=== PATIENT | female | born 1985 | race Caucasian/White ===

== ENCOUNTER 2016-11-19 01:38 | Inpatient (IN) | payer BC ==
[2016-11-19] MEDS ORDERED: Sodium Chloride 0.9% 10 ML Syringe FLUSH PRN ×2 (03:43→06:58)
[2016-11-19] MEDS ORDERED: Sodium Chloride 0.9% 2.5 ML Syringe FLUSH PRN ×2 (03:43→06:58)
[2016-11-19] MEDS: Lactated Ringers 1,000 ML IV ONE ×2 (04:05→06:58)
[2016-11-19] MEDS ORDERED: Dextrose 5%-Lactated Ringers 1,000 ML IV SCH (05:30)
[2016-11-19] MEDS ORDERED: Propofol 200 MG/20 ML SDV ONE (06:56)
[2016-11-19] MEDS ORDERED: Lidocaine 2% 5 ML SDV ONE (06:56)
[2016-11-19] MEDS ORDERED: fentaNYL 100 MCG/2 ML SDV ONE (06:56)
[2016-11-19] MEDS ORDERED: Midazolam 1 MG/ML 2 ML SDV ONE (06:56)
[2016-11-19] MEDS ORDERED: fentaNYL 250 MCG/5 ML SDV ONE (06:56)
[2016-11-19] MEDS ORDERED: ceFAZolin 1 GM in Premix Bag 1 BAG IV ONE (06:58)
[2016-11-19] MEDS ORDERED: Citric Acid/Sodium Citrate Solution 30 ML Cup PO SCH (07:00)
[2016-11-19] MEDS ORDERED: Lactated Ringers 1,000 ML IV SCH ×2 (07:00→08:00)
[2016-11-19] MEDS ORDERED: HYDROmorphone 2 MG/ML Syringe ONE (07:26)
[2016-11-19] MEDS ORDERED: Octyl 2-Cyanoacrylate 1 Tube ONE (07:34)
[2016-11-19] MEDS ORDERED: Ibuprofen 800 MG Tab PO PRN (07:51)
[2016-11-19] MEDS ORDERED: Lanolin 100% Cream 7 GM Tube TOP PRN (07:51)
[2016-11-19] MEDS ORDERED: Simethicone 80 MG Tab.Chew PO PRN (07:51)
[2016-11-19] MEDS ORDERED: diphenhydrAMINE 50 MG/ML SDV IVPUSH PRN (07:51)
[2016-11-19] MEDS ORDERED: Bisacodyl 10 MG Supp RECTAL PRN (07:51)
[2016-11-19] MEDS ORDERED: Ondansetron 4 MG/2 ML SDV IV PRN (07:51)
[2016-11-19] MEDS ORDERED: Acetaminophen/oxyCODONE 325-5 MG Tab PO PRN (07:51)
[2016-11-19] MEDS ORDERED: Morphine PF 30 MG/30 ML PCA Vial IV SCH (08:00)
[2016-11-19] MEDS ORDERED: HYDROmorphone 2 MG/ML Syringe IVPUSH ONE (08:03)
--- NOTE | 2016-11-19 08:12 | PCM.PREANE ---
Preanesthetic Assessment - Anesthesia/Transfusion/Family Hx Anesthesia History: Prior Anesthesia Without Reaction Transfusion History: Prior Transfusion Without Reaction - Review of Systems General: No Symptoms Pulmonary: No Symptoms Cardiovascular: No Symptoms Gastrointestinal: No symptoms Neurological: No Symptoms Other: Reports: None - Physical Assessment Height: 5 ft 1 in Weight: 97.976 kg ASA Class: 2E Mental Status: Alert & Oriented x3 Airway Class: Mallampati = 2 Dentition: Reports: Normal Dentition Thyro-Mental Finger Breadths: 3 Mouth Opening Finger Breadths: 3 ROM/Head Extension: Full Lungs: Clear to auscultation, Normal respiratory effort Cardiovascular: Regular Rhythm, Tachycardia - Lab Values: Laboratory Last Values WBC 17.81 K/uL (4.0-11.0) H 11/19/16 06:49 RBC 3.61 M/uL (4.30-5.90) L 11/19/16 06:49 Hgb 10.3 g/dL (12.0-16.0) L 11/19/16 06:49 Hct 30.2 % (36.0-46.0) L 11/19/16 06:49 MCV 83.7 fL (80.0-98.0) 11/19/16 06:49 MCH 28.5 pg (27.0-32.0) 11/19/16 06:49 MCHC 34.1 g/dL (31.0-37.0) 11/19/16 06:49 RDW Std Deviation 41.3 fl (28.0-62.0) 11/19/16 06:49 RDW Coeff of Nishi 14 % (11.0-15.0) 11/19/16 06:49 Plt Count 206 K/uL (150-400) 11/19/16 06:49 MPV 10.10 fL (7.40-12.00) 11/19/16 06:49 Neutrophils % (Manual) 65 % (48.0-80.0) 11/19/16 06:49 Band Neutrophils % 12 % 11/19/16 06:49 Lymphocytes % (Manual) 19 % (16.0-40.0) 11/19/16 06:49 Monocytes % (Manual) 4 % (0.0-15.0) 11/19/16 06:49 Nucleated RBC % 0.0 /100WBC 11/19/16 06:49 Absolute Seg Neuts 11.6 11/19/16 06:49 Band Neutrophils # 2.1 11/19/16 06:49 Lymphocytes # (Manual) 3.4 11/19/16 06:49 Monocytes # (Manual) 0.7 11/19/16 06:49 INR 0.97 (0.86-1.11) 11/19/16 06:49 APTT 27.8 SEC (18.6-31.3) 11/19/16 06:49 Urine Color YELLOW 11/19/16 02:00 Urine Appearance SLT CLOUDY 11/19/16 02:00 Urine pH 6.5 (5.0-8.0) 11/19/16 02:00 Ur Specific [place] 1.010 (1.001-1.035) 11/19/16 02:00 Urine Protein NEGATIVE mg/dL (NEGATIVE) 11/19/16 02:00 Urine Glucose (UA) NEGATIVE mg/dL (NEGATIVE) 11/19/16 02:00 Urine Ketones NEGATIVE mg/dL (NEGATIVE) 11/19/16 02:00 Urine Occult Blood LARGE (NEGATIVE) H 11/19/16 02:00 Urine Nitrite NEGATIVE (NEGATIVE) 11/19/16 02:00 Urine Bilirubin NEGATIVE (NEGATIVE) 11/19/16 02:00 Urine Urobilinogen 0.2 EU/dL (<2.0) 11/19/16 02:00 Ur Leukocyte Esterase SMALL (NEGATIVE) 11/19/16 02:00 Blood Type O POSITIVE 11/19/16 06:49 Antibody Screen NEGATIVE 11/19/16 06:49 Crossmatch See Detail 11/19/16 06:49 - Allergies Allergies/Adverse Reactions: Allergies Allergy/AdvReac Type Severity Reaction Status Date / Time No Known Allergies Allergy Verified 03/05/14 22:57 - Anesthesia Plan Free Text/Narrative:: During patient interview she was consent for spinal vs GETA. During the interview suspected progression of her abruption was notice by nursing. The patient was immediately taken from labor and delivery to OR suite for stat c- section under GETA with RSI. - Acknowledgements Anesthesia Type Planned: General Anesthesia, Spinal Pt an Appropriate Candidate for the Planned Anesthesia: Yes Alternatives and Risks of Anesthesia Discussed w Pt/Guardian: Yes Pt/Guardian Understands and Agrees with Anesthesia Plan: Yes PreAnesthesia Questionnaire HEENT History: Reports: None Cardiovascular History: Reports: None Respiratory History: Reports: None Gastrointestinal History: Reports: GERD Genitourinary History: Reports: None [employer]OR [employer] History: Reports: , Spontaneous LMP (Approximate): Musculoskeletal History: Reports: None Neurological History: Reports: None Psychiatric History: Reports: None Endocrine/Metabolic History: Reports: Diabetes, gestational, Obesity/BMI 30+ Hematologic History: Reports: Blood transfusion(s) Immunologic History: Reports: None Oncologic (Cancer) History: Reports: None Dermatologic History: Reports: None - Infectious Disease History Infectious Disease History: Reports: None - Past Surgical History GI Surgical History: Reports: Cholecystectomy Female Surgical History: Reports: section (x2) - SUBSTANCE USE Smoking Status *Q: Never Smoker Second Hand Smoke Exposure: No Days Per Week of Alcohol Use: 0 Recreational Drug Use History: No - CURRENT (IN HOUSE) MEDS Current Meds: Current Medications Bisacodyl (Dulcolax) 10 mg RECTAL .ONCE PRN PRN Reason: Constipation Citric Acid/Sodium Citrate (Bicitra Solution) 30 ml PO .ONCE [place] Diphenhydramine HCl (Benadryl) 25 mg IVPUSH Q6H PRN PRN Reason: Itching or Nausea Docusate Sodium (Colace) 100 mg PO BID [place] Emollient Ointment (Lansinoh Hpa) 0 gm TOP ASDIRECTED PRN PRN Reason: Sore Nipples Fentanyl (Sublimaze) 50 mcg IVPUSH Q5M PRN PRN Reason: Pain (severe 7-10) Stop: 11/20/16 08:03 Hydromorphone HCl (Dilaudid) 0 mg IVPUSH ONETIME ONE Stop: 11/19/16 08:04 Dextrose/Lactated Ringer's (Dextrose 5%-Lactated Ringers) 1,000 mls @ 125 mls/ hr IV ASDIRECTED [place]AL[place] Last Admin: 11/19/16 05:25 Dose: 125 mls/hr Lactated Ringer's (Ringers, Lactated) 1,000 mls @ 500 mls/hr IV .BOLUS [place] Cefazolin Sodium/Dextrose 1 gm (/ Premix) 50 mls @ 100 mls/hr IV ONETIME ONE Stop: 11/19/16 07:27 Lactated Ringer's (Ringers, Lactated) 1,000 mls @ 125 mls/hr IV ASDIRECTED [facility] Ibuprofen (Motrin) 800 mg PO Q8H PRN PRN Reason: mild pain or fever Morphine Sulfate (Morphine Electrolysis Investigator 30 Mg In 30 Ml) [address] [facility] PRN Reason: Protocol Ondansetron HCl (Zofran) 4 mg IV Q4H PRN PRN Reason: Nausea/Vomiting Oxycodone/Acetaminophen (Percocet 325-5 Mg) 1 tab PO Q4H PRN PRN Reason: Pain (moderate 4-6) Oxycodone/Acetaminophen (Percocet 325-5 Mg) 2 tab PO Q4H PRN PRN Reason: Pain (moderate 4-6) Simethicone (Simethicone) 80 mg PO Q4H PRN PRN Reason: Gas Sodium Chloride (Saline Flush) 10 ml FLUSH ASDIRECTED PRN PRN Reason: Keep Vein Open Sodium Chloride (Saline Flush) 2.5 ml FLUSH ASDIRECTED PRN PRN Reason: Keep Vein Open Sodium Chloride (Saline Flush) 10 ml FLUSH ASDIRECTED PRN PRN Reason: Keep Vein Open Sodium Chloride (Saline Flush) 2.5 ml FLUSH ASDIRECTED PRN PRN Reason: Keep Vein Open Discontinued Medications Fentanyl (Sublimaze) Confirm Administered Dose 100 mcg .ROUTE .STK-MED ONE Stop: 11/19/16 06:57 Fentanyl (Sublimaze) Confirm Administered Dose 250 mcg .ROUTE .STK-MED ONE Stop: 11/19/16 06:57 Hydromorphone HCl (Dilaudid) Confirm Administered Dose 2 mg .ROUTE .STK-MED ONE Stop: 11/19/16 07:27 Lactated Ringer's (Ringers, Lactated) 1,000 mls @ 999 mls/hr IV .BOLUS ONE Stop: 11/19/16 04:42 Last Admin: 11/19/16 06:58 Dose: 999 mls/hr Cefazolin Sodium/Dextrose (Ancef) Confirm Administered Dose 50 mls @ as directed .ROUTE .STK-MED ONE Stop: 11/19/16 07:01 Lidocaine (Xylocaine-Mpf 2%) Confirm Administered Dose 10 ml .ROUTE .STK-MED ONE Stop: 11/19/16 06:57 Midazolam HCl (Versed 1 Mg/Ml) Confirm Administered Dose 2 mg .ROUTE .STK-MED ONE Stop: 11/19/16 06:57 Octyl Cyanoacrylate (Dermabond Advance) Confirm Administered Dose 1 applic .ROUTE .STK-MED ONE Stop: 11/19/16 07:35 Propofol (Diprivan 20 Ml) Confirm Administered Dose 400 mg .ROUTE .STK-MED ONE Stop: 11/19/16 06:57 Preanesthetic Assessment - ANESTHESIA/TRANSFUSION/FAMILY HX Anesthesia/Transfusion History: Prior Anesthesia (general for intrauterine emergency 23 months ago) Family History of Anesthesia Reaction: No Intubation History: Unknown - PHYSICAL ASSESSMENT Height: 5 ft 1 in Weight: 97.976 kg - LAB Values: Laboratory Last Values WBC 17.81 K/uL (4.0-11.0) H 11/19/16 06:49 RBC 3.61 M/uL (4.30-5.90) L 11/19/16 06:49 Hgb 10.3 g/dL (12.0-16.0) L 11/19/16 06:49 Hct 30.2 % (36.0-46.0) L 11/19/16 06:49 MCV 83.7 fL (80.0-98.0) 11/19/16 06:49 MCH 28.5 pg (27.0-32.0) 11/19/16 06:49 MCHC 34.1 g/dL (31.0-37.0) 11/19/16 06:49 RDW Std Deviation 41.3 fl (28.0-62.0) 11/19/16 06:49 RDW Coeff of Nishi 14 % (11.0-15.0) 11/19/16 06:49 Plt Count 206 K/uL (150-400) 11/19/16 06:49 MPV 10.10 fL (7.40-12.00) 11/19/16 06:49 Neutrophils % (Manual) 65 % (48.0-80.0) 11/19/16 06:49 Band Neutrophils % 12 % 11/19/16 06:49 Lymphocytes % (Manual) 19 % (16.0-40.0) 11/19/16 06:49 Monocytes % (Manual) 4 % (0.0-15.0) 11/19/16 06:49 Nucleated RBC % 0.0 /100WBC 11/19/16 06:49 Absolute Seg Neuts 11.6 11/19/16 06:49 Band Neutrophils # 2.1 11/19/16 06:49 Lymphocytes # (Manual) 3.4 11/19/16 06:49 Monocytes # (Manual) 0.7 11/19/16 06:49 INR 0.97 (0.86-1.11) 11/19/16 06:49 APTT 27.8 SEC (18.6-31.3) 11/19/16 06:49 Urine Color YELLOW 11/19/16 02:00 Urine Appearance SLT CLOUDY 11/19/16 02:00 Urine pH 6.5 (5.0-8.0) 11/19/16 02:00 Ur Specific [place] 1.010 (1.001-1.035) 11/19/16 02:00 Urine Protein NEGATIVE mg/dL (NEGATIVE) 11/19/16 02:00 Urine Glucose (UA) NEGATIVE mg/dL (NEGATIVE) 11/19/16 02:00 Urine Ketones NEGATIVE mg/dL (NEGATIVE) 11/19/16 02:00 Urine Occult Blood LARGE (NEGATIVE) H 11/19/16 02:00 Urine Nitrite NEGATIVE (NEGATIVE) 11/19/16 02:00 Urine Bilirubin NEGATIVE (NEGATIVE) 11/19/16 02:00 Urine Urobilinogen 0.2 EU/dL (<2.0) 11/19/16 02:00 Ur Leukocyte Esterase SMALL (NEGATIVE) 11/19/16 02:00 Blood Type O POSITIVE 11/19/16 06:49 Antibody Screen NEGATIVE 11/19/16 06:49 Crossmatch See Detail 11/19/16 06:49 - ALLERGIES Allergies/Adverse Reactions: Allergies Allergy/AdvReac Type Severity Reaction Status Date / Time No Known Allergies Allergy Verified 03/05/14 22:57
--- NOTE | 2016-11-19 08:13 | PCM.OPNOTE ---
- General Post-Op/Procedure Note Date of Surgery/Procedure: 11/19/16 Operative Procedure(s): Repeat LTCS with bilateral salpingectomy Findings: Viable male APGARs 3, 6, 7 2610 gm. Abrupted placenta with 3V cord. Normal appearing pelvis Pre Op Diagnosis: 35/5 week IUP. Placental abruption. Previous c section. Undesired fertility Post-Op Diagnosis: same Anesthesia Technique: General ET tube Primary Surgeon: Florence Barrientos Pathology: fallopian tubes/placenta Fluid Replacement, Intraop: 1,400 EBL in mLs: 700 Condition: Fair Free Text/Narrative:: Dictation [id number]
[2016-11-19] MEDS ORDERED: diphenhydrAMINE 12.5 MG/5 ML Liquid 5 ML UD Cup PO PRN (08:15)
[2016-11-19] MEDS: fentaNYL 100 MCG/2 ML SDV IVPUSH PRN ×2 (08:20→08:32)
[2016-11-19] MEDS ORDERED: Morphine PF 30 MG/30 ML PCA Vial ONE (08:24)
--- NOTE | 2016-11-19 08:46 | OR ---
SURGEON: Florence Barrientos M.D. DATE OF PROCEDURE: 11/19/2016 PREOPERATIVE DIAGNOSES: 1. 35 and 5 week intrauterine . 2. Placental abruption. 3. Previous section. 4. Undesired fertility. POSTOPERATIVE DIAGNOSES: 1. 35 and 5 week intrauterine . 2. Placental abruption. 3. Previous section. 4. Undesired fertility. PROCEDURE: Repeat low transverse section with bilateral salpingectomy. ANESTHESIA: General endotracheal anesthesia. ESTIMATED BLOOD LOSS: 700 mL. FLUIDS: 1400 mL crystalloid. COMPLICATIONS: None known. FINDINGS: Viable male; score 2 at one minute, 6 at five minutes, 7 at ten minute; weight of 2610 g. Abruptio placenta with 3-vessel cord. Normal-appearing pelvis otherwise. DISPOSITION: The patient to PACU in good condition. Infant to nursery. PROCEDURE IN DETAIL: Jasson is a 31-year-old, G4, P3, at 35 and 5 weeks' gestational age, who presented on the helicopter engineer of 11/19/2016 with uterine contractions that were becoming uncomfortable. Therefore, she was monitored. Heart tones were in the 140s with variability, reactive. She does have a history of a placental abruption, so we were very aware of that and continued to monitor her. IV fluids were initiated. heart tones were in the 140s; however, shortly after 6:30 a.m., she noticed that she started having some vaginal bleeding. Therefore, we promptly opted to proceed with repeat delivery for placental abruption. Risks of the procedure have been discussed with the patient including infection, bleeding, possible trauma surrounding bowel, bladder, ureter; in case of excessive blood loss, need for blood transfusion, in rare lifesaving circumstances, need for hysterectomy, risk of anesthesia, risk for thromboembolic event. Her heart tones were in the 140s when this happened. Team was called, and within a short interval, the heart tones did decelerate to the 70s. Therefore, the patient was rapidly proceeded to the operating room. She already had a Cao catheter in place. SCDs in place. She was placed in modified dorsal supine position with leftward tilt. She was prepped and draped in the usual sterile fashion after undergoing general endotracheal anesthesia. A time- out had been performed. The pfannensteil incision was created, carried down below the level of the rectus fascia, was incised in the midline, lateralized on either side sharply and bluntly. The superior aspect of the fascia was tented upward, dissected sharply and bluntly from underlying muscles and repeated for inferior aspect of the fascia. The rectus muscles in the midline. The peritoneum was entered. Rectus muscles lateralized. Self-retaining retractor was gently placed. Uterovesical reflection was visualized. Bladder flap was created. The bladder was mobilized away from lower uterine segment, low transverse hysterotomy was performed, uterine cavity was entered bluntly. The hysterotomy was extended laterally. Amniotomy was performed. Copious amount of bloody amniotic fluid was returned. 's head was flexed, delivered from the pelvis, and fundal pressure was applied. The 's head was delivered followed by the shoulders and then the main body without difficulty. Nuchal cord times x1 was reduced manually. The 's oropharynx and nares bulb suctioned. Cord clamped x2 and cut. was quickly passed off to Dr. Mahajan, attending outside rigger. Cord arterial, cord venous, cord blood samples were obtained. Light suprapubic pressure was applied. The placenta was delivered. The shoulder partial abruption uterine cavity was cleared of all clot and debris. Hysterotomy was repaired using 0 Vicryl in continuous running locked fashion followed by a re- imbricating layer. Area of bleeding in the midline was repaired with figure-of- eight sutures. Hemostasis thereafter evident. Uterus was involuting nicely. Upon inspection of the posterior aspect of the uterus, no defects or hematomas found to be forming. The patient does want to proceed with a tubal ligation and did want to proceed with it, even in this clinical setting, as she has had high- risk with history of abruption before. Therefore bilateral salpingectomy was performed using Harmonic blade, first dissection performed on the right side followed by the left. Hemostasis was evident. Uterus returned to the abdominal cavity. The colonic gutters were cleared of all clot and debris, well irrigated, suction dried. The salpingectomy sites were inspected and found to be hemostatic. The hysterotomy was again inspected and found to be hemostatic. Self-retaining retractor now gently removed. Colonic gutters were once again cleared of all clot and debris, well irrigated, suction dried. The hysterotomy was once again inspected and found to be hemostatic. Salpingectomy sites were once again inspected and found to be hemostatic. The rectus muscles were now reapproximated using 0 Vicryl with inverted mattress suture technique. Anterior aspect of the muscle, posterior fascia closely inspected. Any oozing were cauterized. The rectus fascia was reapproximated using 0 Vicryl in continuous running fashion, beginning along the side meeting the midline. Subcutaneous tissue was well irrigated, suction dried. Any areas of oozing were cauterized. The skin edges were reapproximated using 3-0 Vicryl in a Hunter needle in subcuticular fashion, and the incision was now reinforced with Dermabond. Sponge, instrument, and needle counts were correct x2. The patient has tolerated the procedure well overall. She will go to PACU for recovery. to nursery. BIBI / BECKY /[id number] MTDD
--- NOTE | 2016-11-19 08:47 | PCM.POSTAN ---
POST ANESTHESIA ASSESSMENT - MENTAL STATUS Mental Status: alert, oriented - RESPIRATORY Respiratory Status: respiratory rate WNL, airway patent, O2 saturation stable - CARDIOVASCULAR CV Status: pulse rate WNL, blood pressure stable - GASTROINTESTINAL GI Status: no symptoms - PAIN Pain Score: 7 Free Text/Narrative:: states not bad - POST OP HYDRATION Hydration Status: adequate & stable
[2016-11-19] MEDS: Ketorolac 30 MG/ML SDV IVPUSH SCH ×2 (12:36→17:46)
--- NOTE | 2016-11-19 13:28 | PCM48HPAN ---
Post Anesthesia Note - EVALUATION WITHIN 48HRS OF ANESTHETIC Vital Signs in Normal Range: Yes Patient Participated in Evaluation: Yes Respiratory Function Stable: Yes Airway Patent: Yes Cardiovascular Function Stable: Yes Hydration Status Stable: Yes Pain Control Satisfactory: Yes Nausea and Vomiting Control Satisfactory: Yes Mental Status Recovered: Yes
--- NOTE | 2016-11-19 13:43 | US ---
EXAM DATE: 11/19/16 PATIENT'S AGE: 31 Patient: MEGHANA CLOUD Facility: [place], [place] Site . Site : [id number] Study: OB Pelvis [id number] 3:43:40 AM Ordering Physician: Floyd Henriquez Final Report: INDICATION: Decreased movement. TECHNIQUE: Ultrasound OB pelvis transabdominal with biophysical profile. 9 images submitted for review. COMPARISON: None available. FINDINGS: Single living intrauterine in cephalic presentation with heart rate of 142 beats per minute. Posterior placenta is otherwise unremarkable in appearance. Amniotic fluid index of greater than 29 cm. The largest pocket of fluid measures 9.2 cm. breathing movements, motion, and tone were not demonstrated. IMPRESSION: Single living intrauterine in cephalic presentation. No breathing movements, tone or motion demonstrated. Polyhydramnios. Discussed with the patient`s nurse Malinda for Dr. Barrientos at the time of diction. Dictated by Chester Quinones MD @ 11/19/2016 4:14:58 AM Dictated by: Chester Quinones MD @ 11/19/2016 04:15:18 (Electronic Signature) Report Signed by Proxy and Original Signed Document filed in the Medical Record. MTDD
[2016-11-19] MEDS: Docusate Sodium 100 MG Cap PO SCH (16:16)
[2016-11-20] MEDS: Docusate Sodium 100 MG Cap PO SCH ×2 (03:38→08:24)
[2016-11-20] MEDS: Ketorolac 30 MG/ML SDV IVPUSH SCH ×3 (06:00→11:59)
[2016-11-20] MEDS: Acetaminophen/oxyCODONE 325-5 MG Tab PO PRN ×2 (08:22→12:08)
--- NOTE | 2016-11-20 09:07 | PCM.PNPP ---
- General Info Date of Service: 11/20/16 Functional Status: Reports: pain controlled, tolerating diet, ambulating, urinating - Review of Systems General: Denies: Fever, Weakness, Fatigue, Chills Pulmonary: Denies: shortness of breath, pleuritic chest pain, cough Cardiovascular: Denies: Chest Pain, Palpitations, Dyspnea on Exertion Gastrointestinal: Reports: Abdominal pain (incisional pain). Denies: Nausea, Vomiting Genitourinary: Denies: dysuria, flank pain Neurological: Denies: Confusion Psychiatric: Denies: depression, mood lability, anxiety - General Info Date of Service: 11/20/16 - Patient Data Vital Signs - most recent: Last Vital Signs Temp 36.4 C 11/20/16 04:00 Pulse 108 H 11/20/16 04:00 Resp 16 11/20/16 04:00 BP 101/58 L 11/20/16 04:00 Pulse Ox 94 L 11/20/16 04:00 Weight - most recent: 216 lb I&O - last 24 hours: Intake & Output 11/19/16 11/20/16 11/20/16 22:59 06:59 14:59 Intake Total 2336 Output Total 1000 1300 Balance 1336 -1300 Lab Results - last 24 hrs: Laboratory Results - last 24 hr 11/19/16 11/20/16 Range/Units 06:49 04:50 WBC 17.81 H 15.06 H (4.0-11.0) K/uL RBC 3.61 L 3.18 L (4.30-5.90) M/uL Hgb 10.3 L 9.1 L (12.0-16.0) g/dL Hct 30.2 L 26.8 L (36.0-46.0) % MCV 83.7 84.3 (80.0-98.0) fL MCH 28.5 28.6 (27.0-32.0) pg MCHC 34.1 34.0 (31.0-37.0) g/dL RDW Std Deviation 41.3 42.1 (28.0-62.0) fl RDW Coeff of Nishi 14 14 (11.0-15.0) % Plt Count 206 197 (150-400) K/uL MPV 10.10 10.10 (7.40-12.00) fL Neutrophils % (Manual) 65 (48.0-80.0) % Band Neutrophils % 12 % Lymphocytes % (Manual) 19 (16.0-40.0) % Monocytes % (Manual) 4 (0.0-15.0) % Nucleated RBC % 0.0 0.0 /100WBC Absolute Seg Neuts 11.6 Band Neutrophils # 2.1 Lymphocytes # (Manual) 3.4 Monocytes # (Manual) 0.7 Nucleated RBCs # 0 K/uL Med Orders - Current: Current Medications Bisacodyl (Dulcolax) 10 mg RECTAL .ONCE PRN PRN Reason: Constipation Citric Acid/Sodium Citrate (Bicitra Solution) 30 ml PO .ONCE [place] Diphenhydramine HCl (Benadryl) 25 mg IVPUSH Q6H PRN PRN Reason: Itching or Nausea Last Admin: 11/19/16 09:42 Dose: 25 mg Docusate Sodium (Colace) 100 mg PO BID [facility] Last Admin: 11/20/16 08:24 Dose: 100 mg Emollient Ointment (Lansinoh Hpa) 0 gm TOP ASDIRECTED PRN PRN Reason: Sore Nipples Dextrose/Lactated Ringer's (Dextrose 5%-Lactated Ringers) 1,000 mls @ 125 mls/ hr IV ASDIRECTED [facility] Last Admin: 11/19/16 05:25 Dose: 125 mls/hr Lactated Ringer's (Ringers, Lactated) 1,000 mls @ 500 mls/hr IV .BOLUS [facility] Lactated Ringer's (Ringers, Lactated) 1,000 mls @ 125 mls/hr IV ASDIRECTED [facility] Last Admin: 11/19/16 09:00 Dose: 125 mls/hr Ibuprofen (Motrin) 800 mg PO Q8H PRN PRN Reason: mild pain or fever Ketorolac Tromethamine (Toradol) 30 mg IVPUSH Q6H [facility] Stop: 11/24/16 11:42 Last Admin: 11/20/16 06:00 Dose: 30 mg Ondansetron HCl (Zofran) 4 mg IV Q4H PRN PRN Reason: Nausea/Vomiting Oxycodone/Acetaminophen (Percocet 325-5 Mg) 1 tab PO Q4H PRN PRN Reason: Pain (moderate 4-6) Oxycodone/Acetaminophen (Percocet 325-5 Mg) 2 tab PO Q4H PRN PRN Reason: Pain (moderate 4-6) Last Admin: 11/20/16 08:22 Dose: 2 tab Simethicone (Simethicone) 80 mg PO Q4H PRN PRN Reason: Gas Sodium Chloride (Saline Flush) 10 ml FLUSH ASDIRECTED PRN PRN Reason: Keep Vein Open Sodium Chloride (Saline Flush) 2.5 ml FLUSH ASDIRECTED PRN PRN Reason: Keep Vein Open Sodium Chloride (Saline Flush) 10 ml FLUSH ASDIRECTED PRN PRN Reason: Keep Vein Open Sodium Chloride (Saline Flush) 2.5 ml FLUSH ASDIRECTED PRN PRN Reason: Keep Vein Open Discontinued Medications Diphenhydramine HCl (Benadryl) 12.5 mg PO Q6H PRN PRN Reason: itching or nausea Fentanyl (Sublimaze) Confirm Administered Dose 100 mcg .ROUTE .STK-MED ONE Stop: 11/19/16 06:57 Fentanyl (Sublimaze) Confirm Administered Dose 250 mcg .ROUTE .STK-MED ONE Stop: 11/19/16 06:57 Fentanyl (Sublimaze) 50 mcg IVPUSH Q5M PRN PRN Reason: Pain (severe 7-10) Stop: 11/20/16 08:03 Last Admin: 11/19/16 08:32 Dose: 50 mcg Hydromorphone HCl (Dilaudid) Confirm Administered Dose 2 mg .ROUTE .STK-MED ONE Stop: 11/19/16 07:27 Hydromorphone HCl (Dilaudid) 0 mg IVPUSH ONETIME ONE Stop: 11/19/16 08:04 Last Admin: 11/20/16 03:38 Dose: Not Given Lactated Ringer's (Ringers, Lactated) 1,000 mls @ 999 mls/hr IV .BOLUS ONE Stop: 11/19/16 04:42 Last Admin: 11/19/16 06:58 Dose: 999 mls/hr Cefazolin Sodium/Dextrose 1 gm (/ Premix) 50 mls @ 100 mls/hr IV ONETIME ONE Stop: 11/19/16 07:27 Last Admin: 11/20/16 03:38 Dose: Not Given Cefazolin Sodium/Dextrose (Ancef) Confirm Administered Dose 50 mls @ as directed .ROUTE .STK-MED ONE Stop: 11/19/16 07:01 Last Admin: 11/20/16 03:38 Dose: Not Given Lidocaine (Xylocaine-Mpf 2%) Confirm Administered Dose 10 ml .ROUTE .STK-MED ONE Stop: 11/19/16 06:57 Midazolam HCl (Versed 1 Mg/Ml) Confirm Administered Dose 2 mg .ROUTE .STK-MED ONE Stop: 11/19/16 06:57 Morphine Sulfate (Morphine Cash Register Operator 30 Mg In 30 Ml) 30 mg IV SEECOMMENT ITALO PRN Reason: Protocol Last Admin: 11/19/16 18:33 Dose: 30 mg Morphine Sulfate (Morphine Cash Register Operator 30 Mg In 30 Ml) Confirm Administered Dose 30 mg .ROUTE .STK-MED ONE Stop: 11/19/16 08:25 Last Admin: 11/19/16 08:30 Dose: 30 mg Octyl Cyanoacrylate (Dermabond Advance) Confirm Administered Dose 1 applic .ROUTE .STK-MED ONE Stop: 11/19/16 07:35 Propofol (Diprivan 20 Ml) Confirm Administered Dose 400 mg .ROUTE .STK-MED ONE Stop: 11/19/16 06:57 - Interaction Infant Disposition, : Baby transferred to [facility] NICU Interaction: Not Applicable Support Person: - Recovery Exam Fundal Tone: Firm Fundal Level: 1 Fingerbreadths Below Umbilicus Fundal Placement: Midline Lochia Amount: Scant Lochia Color: Rubra/Red Perineum Description: Intact, Minimal Bruising/Swelling Episiotomy/Laceration: None Bladder Status: Voiding Urinary Elimination: Voided - Exam General: alert, oriented HEENT: Pupils equal Lungs: Clear to auscultation, Normal respiratory effort Cardiovascular: Regular Rate, Regular Rhythm Abdomen: bowel sounds present, soft, no tenderness, no distension Extremities: no calf tenderness, edema Skin: warm Wound/Incisions: healing well Psy/Mental Status: alert, normal affect, normal mood - Problem List & Annotations (1) delivery delivered SNOMED Code(s): 362896083 Code(s): O82 - ENCOUNTER FOR DELIVERY WITHOUT INDICATION Status: Acute Current Visit: Yes (2) delivery SNOMED Code(s): 144525047, 321916466 Code(s): O60.10X0 - LABOR W DELIVERY, UNSP TRIMESTER, UNSP Status: Acute Current Visit: Yes (3) Placenta abruption, delivered, current hospitalization SNOMED Code(s): 574321241, 438732724 Code(s): O45.90 - PREMATURE SEPARATION OF PLACENTA, UNSP, UNSP TRIMESTER Status: Acute Current Visit: Yes - Problem List Review Problem List Initiated/Reviewed/Updated: Yes - Assessment Assessment:: POD#1 s/p stat RLTCS with BTL(already approved by ethnic committed) for placenta abruption at 35 weeks gestation. Patient is stable, pain controlled with pain meds. Baby was sent out to [facility] last evening and patient would like to discharge home today to be with baby - Plan Plan:: May to discharged from the hospital today around noon after her last dose of Toradol. LILA stockings for VTE prophylaxis for the drive to [facility] Prescription given for pain meds Discharge instructions given Continue pNV Bleeding and incision care reviewed Nothing in the vagina for 6 weeks Follow up in 2 and 6 weeks
[2016-11-20 13:50] VITALS: BP 115/72
== END 2016-11-20 12:35 | disposition home or self-care (01) | DRG 540 ==
LOC: MW.OB 01:38 → MW.OBCHECK 01:38 → MW.OB 06:58 → MW.OBCHECK 06:58
PROVIDERS: ADMIT Obstetrics & Gynecology; ATTEND Obstetrics & Gynecology
PROC: 10D00Z1 Extraction of Products of Conception, Low, Open Approach (ICD-10-PCS; principal; 2016-11-19)
PROC: 0UT70ZZ Resection of Bilateral Fallopian Tubes, Open Approach (ICD-10-PCS; 2016-11-19)
DX: O34.211 Maternal care for low transverse scar from previous cesarean delivery (principal); O45.93 Premature separation of placenta, unspecified, third trimester; O69.1XX0 Labor and delivery complicated by cord around neck, with compression, not applicable or unspecified; Z3A.35 35 weeks gestation of pregnancy; Z37.0 Single live birth; Z30.2 Encounter for sterilization
CPT/HCPCS: 01961; 36415; 59025; 76819; 76819-26; 81003; 85027; 85610; 85730; 86850; 86900; 86901; 86920; 86921; 86922; 88307; A9270-GY; J1170; J1200; J1885; J2250; J2274; J2704; J3010; J7042; J7120

== ENCOUNTER 2018-10-21 11:06 | Emergency (ER) | payer BC ==
[2018-10-21] MEDS ORDERED: Ondansetron 4 MG/2 ML SDV IVPUSH ONE (11:25)
[2018-10-21] MEDS ORDERED: Ketorolac 30 MG/ML SDV IVPUSH ONE (11:25)
[2018-10-21] MEDS ORDERED: Sodium Chloride 0.9% 1,000 ML IV ONE (11:25)
[2018-10-21] MEDS ORDERED: Ketorolac 30 MG/ML SDV ONE (11:27)
[2018-10-21] MEDS ORDERED: Ondansetron 4 MG/2 ML SDV ONE (11:28)
--- NOTE | 2018-10-21 11:29 | EDM.PDOC ---
ED HPI GENERAL MEDICAL PROBLEM - General Chief Complaint: Genitourinary Problem Stated Complaint: UTI Time Seen by Provider: 10/21/18 11:07 Source of Information: Reports: Patient History Limitations: Reports: No Limitations - History of Present Illness INITIAL COMMENTS - FREE TEXT/NARRATIVE: HISTORY AND PHYSICAL: History of present illness: Patient is a 33-year-old female who presents to the ED today with concerns of left-sided low back pain and urinary tract infection that has been ongoing for the past 3 days. She states that she has a history of urinary tract infections and expresses concern for burning with urination. She states she also has urinary frequency and feels like she has to urinate but cannot produce any urine. She states this feels different, because she now has a severe left-sided back pain. Patient states she has not had any fevers or chills. She has been able to eat and drink per her normal. Patient does have a history of tubal ligation. Patient denies fever, chills, nausea, vomiting, diarrhea, abdominal pain, chest pain, or all other GI, , respiratory, or cardiovascular concerns. Patient does have a history of urinary tract infection but denies any other health history. Review of systems: As per history of present illness and below otherwise all systems reviewed and negative. Past medical history: As per history of present illness and as reviewed below otherwise noncontributory. Surgical history: As per history of present illness and as reviewed below otherwise noncontributory. Social history: See social history for further information Family history: As per history of present illness and as reviewed below otherwise noncontributory. Physical exam: General: Patient is alert, oriented, in no acute distress. She is lying comfortably on the exam table. HEENT: Atraumatic, normocephalic, pupils equal and reactive bilaterally, negative for conjunctival pallor or scleral icterus, mucous membranes moist, TMs normal bilaterally, throat clear, neck supple, nontender, trachea midline. No drooling or trismus noted. No meningeal signs. No hot potato voice noted. Lungs: Clear to auscultation, breath sounds equal bilaterally, chest nontender. Heart: S1S2, regular rate and rhythm without overt murmur Abdomen: Obese, soft, nondistended, nontender. Negative for masses or hepatosplenomegaly. Positive for costovertebral tenderness more so on the left. Mild pain to palpation of the suprapubic area. Pelvis: Stable nontender. Genitourinary: Deferred. Rectal: Deferred. Skin: Intact, warm, dry. No lesions or rashes noted. Extremities: Atraumatic, negative for cords or calf pain. Neurovascular unremarkable. Neuro: Awake, alert, oriented. Cranial nerves II through XII unremarkable. Cerebellum unremarkable. Motor and sensory unremarkable throughout. Exam nonfocal. Notes: Patient's white count is 14.9, we'll hang IV Rocephin while waiting for CT results. CT of the abdomen and pelvis shows a 2 mm obstructing stone within the distal left ureter with moderate proximal hydronephrosis. Punctate nonobstructing nephrolithiasis bilaterally. Dr. Hendricks is currently in surgery and unable to take any phone calls. Dr. King at [facility] was consulted on this case. She states that she like to place the patient placed on Bactrim and she is able to see this patient at the [facility] on 10/25/18 at 8:15 AM. This information was shared with the patient and she voices understanding. Vital signs remain stable. Urine supplies were sent with patient. Supportive care measures were reviewed and discussed. Voices understanding and is agreeable to plan of care. Denies any further questions or concerns at this time. Diagnostics: CBC, CMP, UA, abdominal CT Therapeutics: Saline, Toradol, morphine, Pyridium, Rocephin Prescription: [place] (#20) Bactrim DS BID x 10 days Flomax Impression: Kidney stone, left Plan: 1. Please take the medications as directed. Increase your oral fluids. 2. Dr. King, urologist at [facility] is aware of your case. She is able to see you for a follow-up appointment on 10/25/18 at 8:15 AM. This appointment will be at the [facility]. There phone number is . You may also call Dr Hendricks to see if you're able to be evaluated at his clinic as he is located in [place]. 3. Please follow-up with urology as we discussed. Return to the ED as needed and as discussed. Definitive disposition and diagnosis as appropriate pending reevaluation and review of above. Left Flank Pain Score (Numeric/FACES): 10 - Related Data Allergies Allergy/AdvReac Type Severity Reaction Status Date / Time No Known Allergies Allergy Verified 10/21/18 11:44 Home Meds: Home Meds . [No Known Home Meds] 10/21/18 [History] Past Medical History HEENT History: Reports: None Cardiovascular History: Reports: None Respiratory History: Reports: None Gastrointestinal History: Reports: GERD Genitourinary History: Reports: None SMOKING PIPE COATER History: Reports: , Spontaneous Musculoskeletal History: Reports: None Neurological History: Reports: None Psychiatric History: Reports: None Endocrine/Metabolic History: Reports: Diabetes, Gestational, Obesity/BMI 30+ Hematologic History: Reports: Blood Transfusion(s) Immunologic History: Reports: None Oncologic (Cancer) History: Reports: None Dermatologic History: Reports: None - Infectious Disease History Infectious Disease History: Reports: None - Past Surgical History Female Surgical History: Reports: Section Social & Family History - Family History Family Medical History: Noncontributory ED ROS GENERAL - Review of Systems Review Of Systems: ROS reveals no pertinent complaints other than HPI. ED EXAM, RENAL/ - Physical Exam Exam: See Below (See dictation) Course - Vital Signs Last Recorded V/S: Last Vital Signs Temp 97.1 F 10/21/18 11:43 Pulse 86 10/21/18 11:43 Resp 20 10/21/18 11:43 BP 133/70 10/21/18 11:43 Pulse Ox 98 10/21/18 11:43 - Orders/Labs/Meds Labs: Laboratory Tests 10/21/18 10/21/18 10/21/18 Range/Units 11:26 11:38 12:26 WBC 14.94 H (4.0-11.0) K/uL RBC 4.94 (4.30-5.90) M/uL Hgb 13.9 (12.0-16.0) g/dL Hct 40.8 (36.0-46.0) % MCV 82.6 (80.0-98.0) fL MCH 28.1 (27.0-32.0) pg MCHC 34.1 (31.0-37.0) g/dL RDW Std Deviation 40.4 (28.0-62.0) fl RDW Coeff of Nishi 14 (11.0-15.0) % Plt Count 317 (150-400) K/uL MPV 9.60 (7.40-12.00) fL Add Manual Diff YES Neutrophils % (Manual) 69 (48.0-80.0) % Lymphocytes % (Manual) 25 (16.0-40.0) % Monocytes % (Manual) 4 (0.0-15.0) % Basophils % (Manual) 2 H (0.0-1.5) % Nucleated RBC % 0.0 /100WBC Absolute Seg Neuts 10.3 H (1.4-5.7) Lymphocytes # (Manual) 3.7 H (0.6-2.4) Monocytes # (Manual) 0.6 (0.0-0.8) Basophils # (Manual) 0.3 H (0.0-0.1) Nucleated RBCs # 0 K/uL Sodium 136 (136-145) mmol/L Potassium 4.2 (3.5-5.1) mmol/L Chloride 102 (98-107) mmol/L Carbon Dioxide 20.7 L (21.0-32.0) mmol/L BUN 13 (7.0-18.0) mg/dL Creatinine 0.7 (0.6-1.0) mg/dL Est Cr Clr Drug Dosing TNP Estimated GFR (MDRD) > 60.0 ml/min Glucose 118 H (74-106) mg/dL Calcium 8.7 (8.5-10.1) mg/dL Total Bilirubin 0.3 (0.2-1.0) mg/dL AST 24 (15-37) IU/L ALT 24 (14-63) IU/L Alkaline Phosphatase 75 (46-116) U/L Total Protein 8.0 (6.4-8.2) g/dL Albumin 3.9 (3.4-5.0) g/dL Globulin 4.1 H (2.6-4.0) g/dL Albumin/Globulin Ratio 1.0 (0.9-1.6) Urine Color YELLOW Urine Appearance CLEAR Urine pH 6.0 (5.0-8.0) Ur Specific [place] >= 1.030 (1.001-1.035) Urine Protein NEGATIVE (NEGATIVE) mg/dL Urine Glucose (UA) NEGATIVE (NEGATIVE) mg/dL Urine Ketones NEGATIVE (NEGATIVE) mg/dL Urine Occult Blood NEGATIVE (NEGATIVE) Urine Nitrite NEGATIVE (NEGATIVE) Urine Bilirubin NEGATIVE (NEGATIVE) Urine Urobilinogen 0.2 (<2.0) EU/dL Ur Leukocyte Esterase NEGATIVE (NEGATIVE) Urine HCG, Qual (NEGATIVE) 10/21/18 Range/Units 12:26 WBC (4.0-11.0) K/uL RBC (4.30-5.90) M/uL Hgb (12.0-16.0) g/dL Hct (36.0-46.0) % MCV (80.0-98.0) fL MCH (27.0-32.0) pg MCHC (31.0-37.0) g/dL RDW Std Deviation (28.0-62.0) fl RDW Coeff of Nishi (11.0-15.0) % Plt Count (150-400) K/uL MPV (7.40-12.00) fL Add Manual Diff Neutrophils % (Manual) (48.0-80.0) % Lymphocytes % (Manual) (16.0-40.0) % Monocytes % (Manual) (0.0-15.0) % Basophils % (Manual) (0.0-1.5) % Nucleated RBC % /100WBC Absolute Seg Neuts (1.4-5.7) Lymphocytes # (Manual) (0.6-2.4) Monocytes # (Manual) (0.0-0.8) Basophils # (Manual) (0.0-0.1) Nucleated RBCs # K/uL Sodium (136-145) mmol/L Potassium (3.5-5.1) mmol/L Chloride (98-107) mmol/L Carbon Dioxide (21.0-32.0) mmol/L BUN (7.0-18.0) mg/dL Creatinine (0.6-1.0) mg/dL Est Cr Clr Drug Dosing Estimated GFR (MDRD) ml/min Glucose (74-106) mg/dL Calcium (8.5-10.1) mg/dL Total Bilirubin (0.2-1.0) mg/dL AST (15-37) IU/L ALT (14-63) IU/L Alkaline Phosphatase (46-116) U/L Total Protein (6.4-8.2) g/dL Albumin (3.4-5.0) g/dL Globulin (2.6-4.0) g/dL Albumin/Globulin Ratio (0.9-1.6) Urine Color Urine Appearance Urine pH (5.0-8.0) Ur Specific [place] (1.001-1.035) Urine Protein (NEGATIVE) mg/dL Urine Glucose (UA) (NEGATIVE) mg/dL Urine Ketones (NEGATIVE) mg/dL Urine Occult Blood (NEGATIVE) Urine Nitrite (NEGATIVE) Urine Bilirubin (NEGATIVE) Urine Urobilinogen (<2.0) EU/dL Ur Leukocyte Esterase (NEGATIVE) Urine HCG, Qual NEGATIVE (NEGATIVE) Meds: Medications Discontinued Medications Generic Name Dose Route Start Last Admin Trade Name Freq PRN Reason Stop Dose Admin Sodium Chloride 1,000 mls @ 999 mls/hr 10/21/18 11:25 10/21/18 11:35 Normal Saline IV 10/21/18 12:25 999 mls/hr STAT ONE Administration Ceftriaxone Sodium/Dextrose 1 50 mls @ 100 mls/hr 10/21/18 12:38 gm/ Premix IV 10/21/18 13:07 ONETIME ONE Ketorolac Tromethamine 30 mg 10/21/18 11:25 10/21/18 11:38 Toradol IVPUSH 10/21/18 11:26 30 mg ONETIME ONE Administration Ketorolac Tromethamine Confirm 10/21/18 11:27 10/21/18 11:51 Toradol Administered 10/21/18 11:28 Not Given Dose 30 mg .ROUTE .STK-MED ONE Morphine Sulfate 2 mg 10/21/18 11:54 10/21/18 12:03 Morphine IVPUSH 10/21/18 11:55 2 mg ONETIME ONE Administration Ondansetron HCl 4 mg 10/21/18 11:25 10/21/18 11:36 Zofran IVPUSH 10/21/18 11:26 4 mg ONETIME ONE Administration Ondansetron HCl Confirm 10/21/18 11:28 10/21/18 11:51 Zofran Administered 10/21/18 11:29 Not Given Dose 4 mg .ROUTE .STK-MED ONE Phenazopyridine HCl 200 mg 10/21/18 11:58 10/21/18 12:03 Pyridium PO 10/21/18 11:59 200 mg ONETIME ONE Administration Departure - Departure Time of Disposition: 13:26 Disposition: Home, Self-Care 01 Clinical Impression: Kidney stone - Discharge Information Instructions: Kidney Stones, [id number] Referrals: Andrea Ratliff MD [Primary Care Provider] - Forms: ED Department Discharge Additional Instructions: The following information is given to patients seen in the emergency department who are being discharged to home. This information is to outline your options for follow-up care. We provide all patients seen in our emergency department with a follow-up referral. The need for follow-up, as well as the timing and circumstances, are variable depending upon the specifics of your emergency department visit. If you don't have a primary care physician on staff, we will provide you with a referral. We always advise you to contact your personal physician following an emergency department visit to inform them of the circumstance of the visit and for follow-up with them and/or the need for any referrals to a consulting specialist. The emergency department will also refer you to a specialist when appropriate. This referral assures that you have the opportunity for follow-up care with a specialist. All of these measure are taken in an effort to provide you with optimal care, which includes your follow-up. Under all circumstances we always encourage you to contact your private physician who remains a resource for coordinating your care. When calling for follow-up care, please make the office aware that this follow-up is from your recent emergency room visit. If for any reason you are refused follow-up, please contact the [facility] Emergency Department at and asked to speak to the emergency department charge nurse. [facility] Primary [facility] [address] [place] [id number] [facility] Specialty Care - Urology [address] [place] [id number] [id number] 1. Please take the medications as directed. Increase your oral fluids. 2. Dr. King, urologist at [facility] is aware of your case. She is able to see you for a follow-up appointment on 10/25/18 at 8:15 AM. This appointment will be at the [facility]. There phone number is . You may also call Dr Hendricks to see if you're able to be evaluated at his clinic as he is located in [place]. 3. Please follow-up with urology as we discussed. Return to the ED as needed and as discussed.
[2018-10-21] MEDS ORDERED: Morphine 2 MG/ML Syringe IVPUSH ONE (11:54)
[2018-10-21] MEDS ORDERED: Phenazopyridine 200 MG Tab PO ONE (11:58)
[2018-10-21 12:20] LABS: CHLORIDE,CL 102 mmol/L (98-107); SODIUM,NA 136 mmol/L (136-145)
[2018-10-21] MEDS ORDERED: cefTRIAXone 1 GM in Premix Bag 1 BAG IV ONE (12:38)
--- NOTE | 2018-10-21 13:02 | CT ---
CT of the abdomen and pelvis without contrast. HISTORY: Pain TECHNIQUE: Axial CT images were obtained of the abdomen and pelvis without contrast. Coronal and sagittal reconstructions obtained. FINDINGS: The lung bases are clear, no pleural effusion. There is heterogeneous moderate fatty infiltration of the liver. Spleen, adrenal glands, and pancreas appear unremarkable for noncontrast examination. Cholelithiasis. There is no bulky retroperitoneal lymphadenopathy. No abdominal ascites. There is an obstructing 2 mm stone within the distal left ureter near the ureterovesicular junction. There is moderate proximal hydronephrosis and perirenal stranding. Punctate nonobstructing renal stones also noted bilaterally. The large and small bowel are normal in caliber without evidence of obstruction. The appendix appears normal. There is no bulky pelvic lymphadenopathy. No free fluid. No free air. The urinary bladder appears normal. The visualized osseous structures appear normal. IMPRESSION: 1. There is a 2 mm obstructing stone within the distal left ureter with moderate proximal hydronephrosis. 2. Punctate nonobstructing nephrolithiasis bilaterally.
[2018-10-21] MEDS ORDERED: Morphine 4 MG/ML Syringe IVPUSH ONE (13:46)
[2018-10-21 15:21] VITALS: BP 106/69
== END 2018-10-21 14:21 | disposition home or self-care (01) ==
LOC: MW.ED 11:06
DX: N13.2 Hydronephrosis with renal and ureteral calculous obstruction (principal)
CPT/HCPCS: 36415; 74176; 80053; 81003; 81025; 85025; 96361; 96365; 96375; 96376; 99284; A9270; J0696; J1885; J2270; J2405; J7040; 99283

== ENCOUNTER 2019-10-07 15:05 | Emergency (ER) | payer BC ==
[2019-10-07 16:28] VITALS: BP 161/98; PULSE 75
--- NOTE | 2019-10-07 16:47 | EDM.PDOC ---
ED HPI GENERAL MEDICAL PROBLEM - General Chief Complaint: Lower Extremity Injury/Pain Stated Complaint: RT FOOT INJURY Time Seen by Provider: 10/07/19 16:32 Source of Information: Reports: Patient History Limitations: Reports: No Limitations - History of Present Illness Onset: Today (jammed left 5th toe on a table) Location: Reports: Lower Extremity, Right (right 5th toe) Severity: Moderate Improves with: Reports: Cold Therapy, Immobilization Worsens with: Reports: Other (and weight bearing), Movement Context: Reports: Other (jammed toe into table) Right Toe-Little Pain Score (Numeric/FACES): 5 - Related Data Allergies Allergy/AdvReac Type Severity Reaction Status Date / Time No Known Allergies Allergy Verified 10/07/19 16:25 Home Meds: Home Meds Ibuprofen [Motrin] 800 mg PO BID 10 Days #20 tablet 10/07/19 [Rx] Past Medical History HEENT History: Reports: None Cardiovascular History: Reports: None Respiratory History: Reports: None Gastrointestinal History: Reports: GERD Genitourinary History: Reports: None [employer] History: Reports: , Spontaneous Musculoskeletal History: Reports: None Neurological History: Reports: None Psychiatric History: Reports: None Endocrine/Metabolic History: Reports: Diabetes, Gestational, Obesity/BMI 30+ Hematologic History: Reports: Blood Transfusion(s) Immunologic History: Reports: None Oncologic (Cancer) History: Reports: None Dermatologic History: Reports: None - Infectious Disease History Infectious Disease History: Reports: None - Past Surgical History GI Surgical History: Reports: Cholecystectomy Female Surgical History: Reports: Section Social & Family History - Family History Family Medical History: Noncontributory - Tobacco Use Smoking Status *Q: Never Smoker Second Hand Smoke Exposure: No - Caffeine Use Caffeine Use: Reports: None - Recreational Drug Use Recreational Drug Use: No Review of Systems - Review of Systems Review Of Systems: See Below Constitutional: Reports: No Symptoms Eyes: Reports: No Symptoms Ears: Reports: No Symptoms Nose: Reports: No Symptoms Mouth/Throat: Reports: No Symptoms Respiratory: Reports: No Symptoms Cardiovascular: Reports: No Symptoms GI/Abdominal: Reports: No Symptoms Genitourinary: Reports: No Symptoms Musculoskeletal: Reports: Foot Pain (right 5th toe) Skin: Reports: No Symptoms Neurological: Reports: No Symptoms ED EXAM, GENERAL - Physical Exam Exam: See Below Exam Limited By: No Limitations General Appearance: Alert, WD/WN, No Apparent Distress Ears: Normal External Exam, Normal Canal, Hearing Grossly Normal, Normal TMs Ear Exam: Bilateral Ear: Auricle Normal, Canal Normal, TM normal Nose: Normal Inspection, Normal Mucosa, No Blood Throat/Mouth: Normal Inspection, Normal Lips, Normal Teeth, Normal Gums, Normal Oropharynx, Normal Voice, No Airway Compromise Head: Atraumatic, Normocephalic Neck: Normal Inspection, Supple, Non-Tender, Full Range of Motion Respiratory/Chest: No Respiratory Distress, Lungs Clear, Normal Breath Sounds Cardiovascular: Normal Peripheral Pulses, Regular Rate, Rhythm Peripheral Pulses: 3+: Dorsalis Pedis (L), 4+: Dorsalis Pedis (R) GI/Abdominal: Normal Bowel Sounds, Soft, No Organomegaly (Female) Exam: Deferred Rectal (Female) Exam: Deferred Extremities: No Pedal Edema, Normal Capillary Refill, Other (swelling and tenderness noted right 5th toe) Neurological: Alert, Oriented, Normal Reflexes Course - Vital Signs Text/Narrative:: I went over the x-rays that revealed the fracture of the right 5th toe. She will be discharge. She agrees with the discharge plan. Last Recorded V/S: Last Vital Signs Temp 97.4 F 10/07/19 16:25 Pulse 75 10/07/19 16:25 Resp 16 10/07/19 16:25 BP 161/98 H 10/07/19 16:25 Pulse Ox 99 10/07/19 16:25 - Orders/Labs/Meds Orders: Active Orders 24 hr Category Date Time Status Foot 2V Rt [CR] Stat Exams 10/07/19 17:22 Ordered Departure - Departure Time of Disposition: 18:02 Disposition: Home, Self-Care 01 Condition: Good Clinical Impression: Fracture of toe of right foot Qualifiers: Encounter type: initial encounter Toe: lesser toe Fracture type: closed Phalanx : proximal Fracture alignment: nondisplaced Qualified Code(s): S92.514A - Nondisplaced fracture of proximal phalanx of right lesser toe(s), initial encounter for closed fracture - Discharge Information *PRESCRIPTION DRUG MONITORING PROGRAM REVIEWED*: Yes *COPY OF PRESCRIPTION DRUG MONITORING REPORT IN PATIENT ZARA: Yes Instructions: Toe Fracture, [id number] Referrals: Andrea Ratliff MD [Primary Care Provider] - Forms: ED Department Discharge Additional Instructions: Take all medications as directed. Follow up with your PCP in the next two to four days. Keep toes splinted together for the next two weeks. Follow up with Ortho in one week. Use your post op shoe for comfort. Cold compresses to the injured foot for the next two days (30 minutes on and one hour off while awake) . Elevate the right foot at night for the next two to three days in an effort to keep swelling down. Rest for the next 24 hours. Return to the ED if your condition gets worse or should you have any questions or concerns. The following information is given to patients seen in the emergency department who are being discharged to home. This information is to outline your options for follow-up care. We provide all patients seen in our emergency department with a follow-up referral. The need for follow-up, as well as the timing and circumstances, are variable depending upon the specifics of your emergency department visit. If you don't have a primary care physician on staff, we will provide you with a referral. We always advise you to contact your personal physician following an emergency department visit to inform them of the circumstance of the visit and for follow-up with them and/or the need for any referrals to a consulting specialist. The emergency department will also refer you to a specialist when appropriate. This referral assures that you have the opportunity for follow-up care with a specialist. All of these measure are taken in an effort to provide you with optimal care, which includes your follow-up. Under all circumstances we always encourage you to contact your private physician who remains a resource for coordinating your care. When calling for follow-up care, please make the office aware that this follow-up is from your recent emergency room visit. If for any reason you are refused follow-up, please contact the [facility] Emergency Department at and asked to speak to the emergency department charge nurse. Sepsis Event Note - Evaluation Sepsis Screening Result: No Definite Risk - Focused Exam Vital Signs: Vital Signs Temp Pulse Resp BP Pulse Ox 10/07/19 16:25 97.4 F 75 16 161/98 H 99 Date Exam was Performed: 10/07/19 Time Exam was Performed: 17:59 - My Orders Last 24 Hours: My Active Orders 10/07/19 17:22 Foot 2V Rt [CR] Stat - Assessment/Plan Last 24 Hours: My Active Orders 10/07/19 17:22 Foot 2V Rt [CR] Stat
--- NOTE | 2019-10-07 17:49 | CR ---
Right foot: 2 views of the right foot were obtained. Comparison: No previous study. Fracture is identified within the proximal phalanx of the 5th toe. Very minimal angulation is present. Slight comminution is also present. Soft tissue swelling is noted. No additional fracture or other bony abnormality is appreciated. Impression: 1. 5th toe fracture as described above. 2. Two-view right foot exam is otherwise unremarkable. Diagnostic code #3 This report was dictated in [place] Standard Time
[2019-10-07] MEDS ORDERED: Ibuprofen 800 MG Tab PO ONE (18:01)
== END 2019-10-07 18:28 | disposition home or self-care (01) ==
LOC: MW.ED 15:05
DX: S92.514A Nondisplaced fracture of proximal phalanx of right lesser toe(s), initial encounter for closed fracture (principal); W23.1XXA Caught, crushed, jammed, or pinched between stationary objects, initial encounter
CPT/HCPCS: 73620-26-LT; 73620-26-RT; 73620-LT; 73620-RT; 99282; 99283-25